=== PATIENT | female | born 1960 | race Caucasian/White ===

== ENCOUNTER 2022-07-18 04:11 | Emergency (ER) | payer BC ==
[~2022-07-18] VITALS: Ht 157.5 cm; Wt 84.8 kg
[2022-07-18 04:24] VITALS: BP 149/72
--- NOTE | 2022-07-18 04:39 | NUR ---
PT TRIAGED AND PLACED IN ED RM 11.
--- NOTE | 2022-07-18 04:59 | NUR ---
RAD at bedside for imaging.
--- NOTE | 2022-07-18 05:22 | NUR ---
MD White at bedside examining pt.
[2022-07-18] MEDS ORDERED: LIDOCAINE 5% 1 EA PATCH TP ONE (05:30)
[2022-07-18 05:35] LABS: BASOPHILS % (AUTO) 0.4 % (0.0-2.0); EOSINOPHILS # (AUTO) 0.2 K/uL (0-0.4); EOSINOPHILS % (AUTO) 2.6 % (0.0-4.0); HEMATOCRIT 33.4 % (36-48); LYMPHOCYTES # (AUTO) 1.7 K/uL (2.5-16.5); LYMPHOCYTES % (AUTO) 17.8 % (20.5-51.1); MEAN CORPUSCULAR HEMOGLOBIN 28 pg (27-31); MEAN CORPUSCULAR HGB CONC 33 g/dL (33-37); MEAN CORPUSCULAR VOLUME 85.7 fL (80-94); MONOCYTES # (AUTO) 0.8 K/uL (0.8-1.0); MONOCYTES % (AUTO) 8.4 % (1.7-9.3); NEUTROPHILS # (AUTO) 6.7 K/uL (1.8-7.7); NEUTROPHILS % (AUTO) 70.8 % (42.2-75.2); PLATELET COUNT (AUTO) 306 K/uL (140-450); RED BLOOD CELL COUNT(AUTO) 3.89 MIL/uL (4.20-5.40); RED CELL DISTRIBUTION WIDTH 14.5 % (11.6-13.7); WHITE BLOOD COUNT (AUTO) 9.4 K/uL (4.8-10.8)
[2022-07-18 05:36] LABS: ALBUMIN 3.4 g/dL (3.4-5.0); ANION GAP 13.3 (8-16); CREATININE 0.9 mg/dL (0.6-1.3); POTASSIUM 3.3 mmol/L (3.5-5.1); TOTAL BILIRUBIN 0.4 mg/dL (0.0-1.0)
--- NOTE | 2022-07-18 06:37 | NUR ---
Patient taken to radiology.
[2022-07-18] MEDS ORDERED: POTASSIUM CHLORIDE 10 MEQ TABER PO ONE (06:40)
--- NOTE | 2022-07-18 06:45 | NUR ---
Patient back in bed.
--- NOTE | 2022-07-18 07:25 | NUR ---
Pt report given to Marielena MIMS and Michelle MIMS. Transfer of care at this time.
[2022-07-18] MEDS ORDERED: TRAM50TA3 PO (07:35)
[2022-07-18] MEDS ORDERED: ACET-10509 PO (07:35)
[2022-07-18] MEDS ORDERED: traMADol 50 MG TAB PO ONE (07:35)
[2022-07-18] MEDS ORDERED: LID5T TP (07:35)
--- NOTE | 2022-07-18 07:35 | NUR ---
PT DENIES C/P AT THIS TIME. PT STATED, "THE LIDOCAINE PATCH TOOK AWAY THE PAIN ON MY SHOULDER. I DON'T HAVE PAIN IN MY CHEST. I HAVEN'T HAD THAT PAIN FOR A WHILE". PT C/O RESTLESS LEGS. OBSERVED PT MOVING L LEG BACK AND FORTH. PT STATED, SHE HAS MS. HUTCHINSON AT INFORMING THE PT THAT HER CARDIAC ENZYMES ARE NEGATIVE. HE INFORMED HER THAT HE WOULD BE GIVING HER A RX FOR TRAMADOL AND THAT SHE WOULD BE DC'D.
[2022-07-18 07:59] VITALS: BP 137/63
--- NOTE | 2022-07-18 08:03 | NUR ---
PT DC'D TO THE WAITING ROOM. PT REQUESTED UBER TO TAKE HER TO A [facility] IN [place] WHERE A FRIEND IS TO MEET HER. DISCHARGE INSTRUCTIONS WERE PROVIDED AND REVIEWED. PT ACKNOWLEDGED UNDERSTANDING. PT TO F/U WITH PMD AND GUEST SERVICES ASSISTANT. PT CURRENTLY IN THE WAITING ROOM WITH ALL HER BELONGINGS WAITING FOR HER UBER. PT LEFT IN STABLE CONDITION.
== END 2022-07-18 08:03 | disposition home or self-care (01) ==
LOC: MED 04:11
DX: S20.20XA Contusion of thorax, unspecified, initial encounter (principal); I49.1 Atrial premature depolarization; R00.2 Palpitations; E87.6 Hypokalemia; D64.9 Anemia, unspecified; I25.2 Old myocardial infarction; Z79.899 Other long term (current) drug therapy; X58.XXXA Exposure to other specified factors, initial encounter; Y93.89 Activity, other specified; Y92.89 Other specified places as the place of occurrence of the external cause; Y99.8 Other external cause status
CPT/HCPCS: 36415; 71045; 71100; 80053; 83880; 84484; 85025; 93005; 99285